=== PATIENT | female | born 1940 | race Caucasian/White ===

== ENCOUNTER 2021-04-20 16:03 | Emergency (ER) | payer MEDICARE, OTHER ==
[~2021-04-20] VITALS: Ht 162.6 cm; Wt 68.9 kg
--- NOTE | 2021-04-20 16:20 | NUR ---
PT BIB PA FRM LONG TERM C/O HEAD, BLE AND L INDEX/MIDDLE FINGER PAIN S/P SLIDING OFF HER WHEELCHAIR EARLIER. PT WAS FOUND BY FACILITY STAFF IN THE FLOOR. PT IS AAO, DENIES KO. L SIDED SCALP HEMATOMA NOTED. STABLE VITALS. NAD NOTED. AWAITING MD ARCHER.
--- NOTE | 2021-04-20 16:27 | NUR ---
DR JHA AT BEDSIDE FOR EVAL.
--- NOTE | 2021-04-20 16:51 | NUR ---
PT TO RADIOLOGY FOR HEAD CT SCAN VIA [facility].
[2021-04-20] MEDS ORDERED: MULT1TAB85 PO (17:30)
[2021-04-20] MEDS ORDERED: ALBU2.5V38 IH (17:30)
[2021-04-20] MEDS ORDERED: SIMV-49 PO (17:30)
[2021-04-20] MEDS ORDERED: LINA1TAB9 PO (17:30)
[2021-04-20] MEDS ORDERED: TRAM50TA2 PO (17:30)
[2021-04-20] MEDS ORDERED: SENN-261 PO (17:30)
[2021-04-20] MEDS ORDERED: ACET325T53 PO (17:30)
[2021-04-20] MEDS ORDERED: FURO-145 PO (17:30)
[2021-04-20] MEDS ORDERED: LEVO200T8 PO (17:30)
[2021-04-20] MEDS ORDERED: POLY17PO4 PO (17:30)
[2021-04-20] MEDS ORDERED: HYDR-500 PO (17:30)
[2021-04-20] MEDS ORDERED: MIRT-121 PO (17:30)
[2021-04-20] MEDS ORDERED: CYCLOBENZAPRINE 10 MG TABLET ONE (17:44)
[2021-04-20] MEDS ORDERED: CYCLOBENZAPRINE 10 MG TABLET PO ONE (18:00)
--- NOTE | 2021-04-20 18:05 | NUR ---
CALLED [facility] FOR BLS TRANSPORT. SPOKE WITH SIOMARA. ETA IS 90-120 MIN
--- NOTE | 2021-04-20 19:16 | NUR ---
REPORT GIVEN TO GAEL GEE FOR KATJA.
--- NOTE | 2021-04-20 19:25 | NUR ---
[facility] CALLED. SPOKE TO PER ABOUT PATIENT GOING BACK TO FACILITY.
--- NOTE | 2021-04-20 20:18 | NUR ---
AMBULANCE HERE FOR PT. DC INSTRUCTIONS GIVEN.
[2021-04-20] MEDS ORDERED: TRAMADOL HCL 50 MG TABLET ONE (20:41)
[2021-04-20 20:50] VITALS: BP 111/54
[2021-04-20] MEDS ORDERED: TRAMADOL HCL 50 MG TABLET PO ONE (21:00)
== END 2021-04-20 20:10 ==
LOC: ER 16:45
DX: S09.8XXA Other specified injuries of head, initial encounter (principal); R51.9 Headache, unspecified; Z88.2 Allergy status to sulfonamides; Z88.6 Allergy status to analgesic agent; Z88.1 Allergy status to other antibiotic agents; Z91.012 Allergy to eggs; Z79.899 Other long term (current) drug therapy; W05.0XXA Fall from non-moving wheelchair, initial encounter; Y93.89 Activity, other specified; Y92.89 Other specified places as the place of occurrence of the external cause; Y99.8 Other external cause status
CPT/HCPCS: 70450-TC; 72125-TC; 73130-TC; 73502

== ENCOUNTER 2024-10-20 08:59 | Inpatient (IN) | payer MEDICARE, OTHER ==
[~2024-10-20] VITALS: Ht 162.6 cm; Wt 51.3 kg
[~2024-10-20 08:59] MED LIST: ACET325T53 PO; ALBU2.5V38 IH; FURO-145 PO; HYDR-500 PO; LEVO200T8 PO; LINA1TAB9 PO; MIRT-121 PO; MULT1TAB85 PO; POLY17PO4 PO; SENN-261 PO; SIMV-49 PO; TRAM50TA2 PO
[2024-10-20] MEDS ORDERED: ONDANSETRON HCL/PF 4 MG/2 ML VIAL ONE (09:38)
[2024-10-20] MEDS: IV NS 0.9% 1,000 ML BAG IV ONE (09:44)
[2024-10-20] MEDS: ONDANSETRON HCL/PF 4 MG/2 ML VIAL IVP ONE (09:45)
[2024-10-20 09:47] LABS: BASOPHILS % (AUTO) 0.1 % (0.0-2.0); EOSINOPHILS % (AUTO) 0.1 % (0.0-6.0); HEMATOCRIT 36 % (33-45); HEMOGLOBIN 12.4 g/dL (11.5-14.8); LYMPHOCYTES # (AUTO) 0.3 K/uL (0.8-4.8); LYMPHOCYTES % (AUTO) 2.4 % (20.0-44.0); MEAN CORPUSCULAR HEMOGLOBIN 33 PG (26.0-33.0); MEAN CORPUSCULAR HGB CONC 35 g/dl (31.0-36.0); MEAN CORPUSCULAR VOLUME 96 fL (82-100); MONOCYTES # (AUTO) 0.1 K/uL (0.1-1.30); MONOCYTES % (AUTO) 1.2 % (2.0-12.0); NEUTROPHILS # (AUTO) 10.3 K/uL (1.8-8.9); NEUTROPHILS % (AUTO) 96.2 % (43.0-81.0); PLATELET COUNT (AUTO) 223 K/uL (150-450); RED BLOOD CELL COUNT(AUTO) 3.75 MIL/uL (4.0-5.2); WHITE BLOOD COUNT (AUTO) 10.7 K/uL (4.3-11.0)
[2024-10-20 09:56] LABS: CALCIUM, SERUM 9.1 mg/dL (8.5-10.1); CARBON DIOXIDE 26 mmol/L (21-32); CHLORIDE 102 mmol/L (98-107); GLUCOSE 171 mg/dL (74-106); POTASSIUM 4.2 mmol/L (3.5-5.1); SODIUM SERUM 140 mmol/L (136-145); UREA NITROGEN, BLOOD 31 mg/dL (7-18)
[2024-10-20 10:02] LABS: ALANINE AMINOTRANSFERASE 22 U/L (12-78); ALBUMIN 3.4 g/dL (3.4-5.0); ALKALINE PHOSPHATASE 66 U/L (46-116); ASPARTATE AMINOTRANSFERASE 31 U/L (15-37); BILIRUBIN,DIRECT 0.2 mg/dL (0.0-0.2); BILIRUBIN,TOTAL 0.6 mg/dL (0.2-1.0)
[2024-10-20 10:09] LABS: LACTIC ACID 2.2 mmol/L (0.4-2.0)
[2024-10-20 10:17] LABS: INR 1.03 (0.91-1.10); PARTIAL THROMBOPLASTIN TIME 27.6 SEC (24.3-34.3); PROTHROMBIN TIME 10.9 SECS (9.2-11.1)
[2024-10-20] MEDS ORDERED: DOCU250C14 PO (10:25)
[2024-10-20] MEDS ORDERED: GUAI100S69 PO (10:25)
[2024-10-20] MEDS ORDERED: BUSP10TA35 PO (10:25)
[2024-10-20] MEDS ORDERED: BACL5TAB PO (10:25)
[2024-10-20] MEDS ORDERED: NYST60PO TP (10:25)
[2024-10-20] MEDS ORDERED: FERR325T24 PO (10:25)
[2024-10-20] MEDS ORDERED: POTA-10 PO (10:25)
[2024-10-20] MEDS ORDERED: MEMA10TA56 PO (10:25)
[2024-10-20] MEDS ORDERED: LORA-258 PO (10:25)
[2024-10-20] MEDS ORDERED: ERGO500093 PO (10:25)
[2024-10-20] MEDS ORDERED: LOSA25TA27 PO (10:25)
[2024-10-20] MEDS ORDERED: LEVO150T8 PO (10:25)
[2024-10-20] MEDS: PIPERACILLIN /TAZOBACTAM 3.375 G in IV D5W 50 ML IV ONE (11:02)
[2024-10-20 11:30] LABS: APPEARANCE,URINE TURBID (CLEAR); BILIRUBIN,URINE NEGATIVE (NEGATIVE); BLOOD, URINE 2+ Ery/uL (NEGATIVE); COLOR,URINE DARK YELLOW (YELLOW); KETONES,URINE 1+ mg/dL (NEGATIVE); LEUKOCYTE ESTERASE ,URINE 1+ (NEGATIVE); NITRITE, URINE POSITIVE (NEGATIVE); PH,URINE 5.5 (5.0-8.0); PROTEIN,URINE TRACE mg/dl (NEGATIVE); UGLUCOSE NEGATIVE (NEGATIVE); UROBILINOGEN,URINE 0.2 EU/dL (0.2)
[2024-10-20 11:43] LABS: ADD URINE CULTURE YES; BACTERIA,URINE 1+ /HPF (None Seen); WBC,URINE 21-50 /HPF (0-3)
[2024-10-20 12:30] VITALS: BP 118/65; TEMP 98.1; O2SAT 97
[2024-10-20] MEDS ORDERED: MAGNESIUM HYDROXIDE 30 ML UDC PO PRN (12:30)
[2024-10-20] MEDS ORDERED: BACLOFEN (10 MG) 10 MG TABLET PO PRN (13:00)
[2024-10-20] MEDS ORDERED: DEXTROSE 50%-WATER 50 ML DISP.SYRIN IV PRN (15:30)
[2024-10-20] MEDS: IV NS 0.9% 1,000 ML IV PRN (15:46)
[2024-10-20] MEDS: ZOSYN IVPB 2.25 G in IV D5W 50ml IV SCH (15:51)
[2024-10-20] MEDS: LACTULOSE 10 G/15 ML UDC (PYXIS) PO ONE (15:51)
[2024-10-20 16:24] VITALS: BP 110/71; TEMP 98.6; O2SAT 98
[2024-10-20] MEDS: BLOOD SUGAR DIAGNOSTIC 1 EACH STRIP IN SCH (16:41)
[2024-10-20] MEDS: INSULIN REGULAR, HUMAN 100 UNIT/ML 3 ML VIAL SQ PRN (16:41)
[2024-10-20] MEDS: DOCUSATE SODIUM 250 MG CAPSULE PO SCH (16:43)
[2024-10-20] MEDS: busPIRone 5 MG TABLET PO SCH (16:43)
[2024-10-20] MEDS ORDERED: PIPERACILLIN /TAZOBACTAM 3.375 G in IV D5W 50 ML IV SCH (18:00)
[2024-10-20 20:00] VITALS: BP 103/52; TEMP 98.1; O2SAT 96
[2024-10-20 20:41] VITALS: BP 103/60; TEMP 98.1; O2SAT 98
[2024-10-20] MEDS: MIRTAZAPINE 15 MG TABLET PO SCH (21:36)
[2024-10-21] VITALS (7 sets, daily range): BP systolic 85–123; BP diastolic 55–69; TEMP 97.5–99.1; O2SAT 95–98
[2024-10-21 06:50] LABS: BASOPHILS % (AUTO) 0.2 % (0.0-2.0); EOSINOPHILS % (AUTO) 0.1 % (0.0-6.0); HEMATOCRIT 30 % (33-45); HEMOGLOBIN 10.4 g/dL (11.5-14.8); LYMPHOCYTES # (AUTO) 0.7 K/uL (0.8-4.8); MEAN CORPUSCULAR HEMOGLOBIN 33 PG (26.0-33.0); MEAN CORPUSCULAR HGB CONC 35 g/dl (31.0-36.0); MEAN CORPUSCULAR VOLUME 96 fL (82-100); MONOCYTES # (AUTO) 0.5 K/uL (0.1-1.30); MONOCYTES % (AUTO) 6.7 % (2.0-12.0); NEUTROPHILS # (AUTO) 5.7 K/uL (1.8-8.9); PLATELET COUNT (AUTO) 202 K/uL (150-450); RED BLOOD CELL COUNT(AUTO) 3.12 MIL/uL (4.0-5.2); WHITE BLOOD COUNT (AUTO) 6.8 K/uL (4.3-11.0)
[2024-10-21 07:14] LABS: CALCIUM, SERUM 7.8 mg/dL (8.5-10.1); CREATININE 0.8 mg/dL (0.6-1.3); MAGNESIUM 1.7 mg/dL (1.8-2.4); POTASSIUM 3.3 mmol/L (3.5-5.1)
[2024-10-21] MEDS: POLYETHYLENE GLYCOL 3350 17 GM POWD.PACK PO SCH ×2 (09:00→09:11)
[2024-10-21] MEDS: FERROUS SULFATE (325 MG) 325 MG/TAB TABLET PO SCH (09:10)
[2024-10-21] MEDS: MEMANTINE HCL 5 MG TABLET PO SCH (09:10)
[2024-10-21] MEDS: LEVOTHYROXINE SODIUM 112 MCG TABLET PO SCH (09:11)
[2024-10-21] MEDS: LOSARTAN POTASSIUM 25 MG TABLET PO SCH (09:12)
[2024-10-21] MEDS: MAGNESIUM OXIDE 400 MG TABLET PO ONE (11:34)
[2024-10-21] MEDS: POTASSIUM CHLORIDE 20 MEQ TAB.PRT.SR PO SCH (11:34)
[2024-10-21] MEDS: IV D5/ 0.9% NACL 1,000 ML IV SCH (21:52)
[2024-10-22 02:17] VITALS: BP 123/69; TEMP 98.1; O2SAT 96
[2024-10-22 08:00] VITALS: BP 104/65; TEMP 97.5; O2SAT 95
[2024-10-22] MEDS: ENSURE ENLIVE CHOC 237 ML CAN PO SCH (08:00)
[2024-10-22 15:12] LABS: BASOPHILS % (AUTO) 0.5 % (0.0-2.0); EOSINOPHILS # (AUTO) 0.2 K/uL (0.0-0.7); EOSINOPHILS % (AUTO) 3.9 % (0.0-6.0); HEMATOCRIT 26 % (33-45); HEMOGLOBIN 9.3 g/dL (11.5-14.8); LYMPHOCYTES # (AUTO) 1.4 K/uL (0.8-4.8); LYMPHOCYTES % (AUTO) 33.7 % (20.0-44.0); MEAN CORPUSCULAR HEMOGLOBIN 34 PG (26.0-33.0); MEAN CORPUSCULAR HGB CONC 36 g/dl (31.0-36.0); MEAN CORPUSCULAR VOLUME 95 fL (82-100); MONOCYTES # (AUTO) 0.4 K/uL (0.1-1.30); MONOCYTES % (AUTO) 8.5 % (2.0-12.0); NEUTROPHILS # (AUTO) 2.2 K/uL (1.8-8.9); NEUTROPHILS % (AUTO) 53.4 % (43.0-81.0); PLATELET COUNT (AUTO) 168 K/uL (150-450); RED BLOOD CELL COUNT(AUTO) 2.76 MIL/uL (4.0-5.2); WHITE BLOOD COUNT (AUTO) 4.2 K/uL (4.3-11.0)
[2024-10-22 15:54] LABS: CALCIUM, SERUM 7.5 mg/dL (8.5-10.1); CREATININE 0.7 mg/dL (0.6-1.3); POTASSIUM 3.6 mmol/L (3.5-5.1)
[2024-10-22 16:10] VITALS: BP 106/67; TEMP 98.2; O2SAT 95
[2024-10-22 17:47] LABS: LACTIC ACID 1.5 mmol/L (0.4-2.0)
[2024-10-22 20:39] VITALS: BP 114/71; TEMP 97.7; O2SAT 96
[2024-10-23] MEDS: ERGOCALCIFEROL (VITAMIN D 2) 50,000 UNIT CAPSULE PO SCH (00:11)
[2024-10-23 07:20] LABS: CALCIUM, SERUM 7.6 mg/dL (8.5-10.1); CREATININE 0.6 mg/dL (0.6-1.3); POTASSIUM 3.5 mmol/L (3.5-5.1)
[2024-10-23 08:30] VITALS: BP 106/67; TEMP 97.3; O2SAT 97
[2024-10-23] MEDS: ONDANSETRON HCL/PF 4 MG/2 ML VIAL IVP PRN (11:28)
[2024-10-23] MEDS: IV D5/ 0.9% NACL 1,000 ML IV PRN (15:46)
[2024-10-23 16:00] VITALS: BP_SYST 112; BP_SYST 121; BP_DIAS 68; BP_DIAS 69; TEMP 97.9; O2SAT 94; O2SAT 96
[2024-10-23] MEDS: MAG HYDROX/AL HYDROX/SIMETH 30 ML UDC PO PRN (16:13)
[2024-10-23 20:00] VITALS: BP 138/86; TEMP 97.4; O2SAT 97
[2024-10-24 07:47] LABS: CALCIUM, SERUM 7.8 mg/dL (8.5-10.1); CREATININE 0.7 mg/dL (0.6-1.3); POTASSIUM 3.8 mmol/L (3.5-5.1)
[2024-10-24 08:00] VITALS: BP 115/58; TEMP 98.1; O2SAT 97
[2024-10-24] MEDS: CALCIUM CARB 600MG /VIT D 1 EACH TABLET PO SCH (08:33)
[2024-10-24 20:00] VITALS: BP 121/65; TEMP 97.5; O2SAT 96
[2024-10-25 06:31] LABS: BASOPHILS % (AUTO) 0.4 % (0.0-2.0); EOSINOPHILS # (AUTO) 0.3 K/uL (0.0-0.7); EOSINOPHILS % (AUTO) 5.6 % (0.0-6.0); HEMATOCRIT 30 % (33-45); HEMOGLOBIN 10.3 g/dL (11.5-14.8); LYMPHOCYTES # (AUTO) 2.1 K/uL (0.8-4.8); LYMPHOCYTES % (AUTO) 43.1 % (20.0-44.0); MEAN CORPUSCULAR HEMOGLOBIN 32 PG (26.0-33.0); MEAN CORPUSCULAR HGB CONC 34 g/dl (31.0-36.0); MEAN CORPUSCULAR VOLUME 94 fL (82-100); MONOCYTES # (AUTO) 0.4 K/uL (0.1-1.30); MONOCYTES % (AUTO) 8.1 % (2.0-12.0); NEUTROPHILS # (AUTO) 2.1 K/uL (1.8-8.9); NEUTROPHILS % (AUTO) 42.8 % (43.0-81.0); PLATELET COUNT (AUTO) 225 K/uL (150-450); WHITE BLOOD COUNT (AUTO) 4.9 K/uL (4.3-11.0)
[2024-10-25 07:01] LABS: CALCIUM, SERUM 7.4 mg/dL (8.5-10.1); CREATININE 0.6 mg/dL (0.6-1.3); POTASSIUM 3.5 mmol/L (3.5-5.1)
[2024-10-25 08:15] VITALS: BP 120/63; TEMP 97.9; O2SAT 99
[2024-10-25 08:47] VITALS: BP 120/63
[2024-10-25] MEDS ORDERED: Calcium Carb 600MG /Vit D PO (10:44)
[2024-10-25] MEDS ORDERED: LACT-54 PO (10:44)
[2024-10-25] MEDS ORDERED: ERTA1VIA4 IJ (10:44)
== END 2024-10-25 15:40 | DRG 871 ==
LOC: ER 09:01 → TELE 11:51 → MED 10-21 11:41
PROVIDERS: ADMIT Nurse Practitioner Acute Care; ATTEND Nurse Practitioner Acute Care
DX: A41.9 Sepsis, unspecified organism (principal); G93.41 Metabolic encephalopathy; N39.0 Urinary tract infection, site not specified; I50.32 Chronic diastolic (congestive) heart failure; Z68.1 Body mass index [BMI] 19.9 or less, adult; E87.20 Acidosis, unspecified; F03.94 Unspecified dementia, unspecified severity, with anxiety; J98.11 Atelectasis; K56.41 Fecal impaction; I11.0 Hypertensive heart disease with heart failure; E86.0 Dehydration; E03.9 Hypothyroidism, unspecified; E78.5 Hyperlipidemia, unspecified; H54.8 Legal blindness, as defined in USA; R62.7 Adult failure to thrive; Z88.6 Allergy status to analgesic agent; Z88.2 Allergy status to sulfonamides; Z88.1 Allergy status to other antibiotic agents; Z87.81 Personal history of (healed) traumatic fracture; E11.9 Type 2 diabetes mellitus without complications; Z79.899 Other long term (current) drug therapy; K80.20 Calculus of gallbladder without cholecystitis without obstruction; J44.9 Chronic obstructive pulmonary disease, unspecified; Z91.012 Allergy to eggs; Z79.890 Hormone replacement therapy
CPT/HCPCS: 36415; 71045-TC; 80048-TC; 80076-TC; 81001; 82962-TC; 83605-TC; 83735-TC; 84100-TC; 84484-TC; 85025-TC; 85730-TC; 87040-TC; 87081-TC; 87086-TC; 87186-TC; 92526; 93307-TC; 97110-TC; 97530-TC; A4223; G0378; J1815; J2405; J2543; J7030; J7040; J7042; J7050; J7060